=== PATIENT | female | born 1940 | race Caucasian/White ===

== ENCOUNTER 2016-05-25 19:54 | Emergency (ER) | payer MEDICARE, BC ==
[~2016-05-25] VITALS: Ht 157.5 cm; Wt 70.8 kg
--- NOTE | 2016-05-25 20:06 | NUR ---
Pt walked into ER with daughter at side, states she was out picking [employer]encio and had a trip and fall which she injuried right wrist about 3 hrs prior to arrival. Pt states "I broke my fall with my right arm." pt is alert, oriented x 4, no resp distress noted or reported upon assessment. md at bedside....
[2016-05-25] MEDS ORDERED: ONDANSETRON ODT 4 MG TAB.RAPDIS SL ONE (20:30)
[2016-05-25] MEDS ORDERED: OXYCODONE/APAP 5-325 MG TABLET PO ONE (20:30)
[2016-05-25] MEDS ORDERED: OXYCODONE/APAP 5-325 MG TABLET ONE (20:38)
[2016-05-25] MEDS ORDERED: ONDANSETRON ODT 4 MG TAB.RAPDIS ONE (20:38)
--- NOTE | 2016-05-25 21:05 | NUR ---
colle's splint for right wrist and hand applied, wrapped with silvio bandage, pt states no tingling, no numbness, pt hand and fingers warm to touch...
--- NOTE | 2016-05-25 21:30 | NUR ---
Patient discharged to home in stable conditon. Written and verbal after care instructions given. Patient verbalizes understanding of instructions. pt walked out of ER unassisted with daughter and belongings at side...
[2016-05-25 21:31] VITALS: BP 131/97
== END 2016-05-25 21:32 | disposition home or self-care (01) ==
LOC: ER 19:54
DX: S52.531A Colles' fracture of right radius, initial encounter for closed fracture (principal); S52.611A Displaced fracture of right ulna styloid process, initial encounter for closed fracture; F10.20 Alcohol dependence, uncomplicated; F17.200 Nicotine dependence, unspecified, uncomplicated; W18.30XA Fall on same level, unspecified, initial encounter; Y93.89 Activity, other specified; Y99.8 Other external cause status; Y92.89 Other specified places as the place of occurrence of the external cause
CPT/HCPCS: 29125; 73090; 73110; 99284; 99406; A4663; Q0162